=== PATIENT | male | born 1955 | race Caucasian/White ===

== ENCOUNTER 2018-03-24 11:59 | Outpatient (CLI) | payer OTHER ==
--- NOTE | 2018-03-24 13:23 | ULT ---
BILATERAL CAROTID DUPLEX ULTRASOUND: DATE: 03/24/18 HISTORY: Syncope. TECHNIQUE: Ferris scale ultrasound with color flow and spectral Doppler imaging of the extracranial carotid artery systems performed bilaterally. FINDINGS: No significant plaque formation or intimal wall thickening is seen on either side. The peak systolic velocity in the right ICA measures 87 cm/second with an end-diastolic velocity of 3 0 cm/second and a systolic ratio of 1.08. The peak systolic velocity in the left ICA measures 59 cm/second with an end-diastolic velocity of 25 cm/second and a systolic ratio of 0.72. Flow in both vertebral arteries remains antegrade. IMPRESSION: No evidence of hemodynamically significant stenosis. POS: OFF
== END 2018-03-24 12:00 | disposition home or self-care (01) ==
LOC: ULT 11:59
PROVIDERS: ATTEND Family Medicine
DX: R55 Syncope and collapse (principal); I51.7 Cardiomegaly
CPT/HCPCS: 93306; 93880

== ENCOUNTER 2024-04-07 07:55 | Outpatient (CLI) | payer OTHER ==
[2024-04-07 09:17] LABS: #Basophils 0.06 10x3/uL (0.0-0.2); %Basophils 0.8 % (0.0-1.0); %Eosinophils 4.3 % (0.0-10.0); %Lymphocytes 21.9 % (21.0-51.0); %Monocytes 8.7 % (0.0-10.0); Hematocrit 39.6 % (42.0-52.0); Hemoglobin 13.3 g/dL (14.0-18.0); Mean Corpuscular HGB CONC 33.6 g/dL (32.0-36.0); Mean Corpuscular Hemoglobin 30.6 pg (27.0-31.0); Mean Corpuscular Volume 91.2 fL (78.0-98.0); Mean Platelet Volume 10.3 fL (7.4-10.4); Platelet Count 220 10x3/uL (130-400); RBC Distribution Width 12.6 % (11.5-14.5); Red Blood Cell (RBC) Count 4.34 mill/uL (4.70-6.10)
== END 2024-04-07 07:56 | disposition home or self-care (01) ==
LOC: LABBT 07:55
PROVIDERS: ATTEND Orthopaedic Surgery Hand Surgery
DX: Z01.818 Encounter for other preprocedural examination (principal); G56.02 Carpal tunnel syndrome, left upper limb; G56.22 Lesion of ulnar nerve, left upper limb; G56.12 Other lesions of median nerve, left upper limb
CPT/HCPCS: 85025; 93005; 93010

== ENCOUNTER 2025-03-29 14:13 | Outpatient (CLI) | payer OTHER, MEDICARE | END 2025-03-29 14:14 | disposition home or self-care (01) | LOC: ULT 14:13 | PROVIDERS: ATTEND Urology | DX: Z87.442 Personal history of urinary calculi (principal); N28.1 Cyst of kidney, acquired | CPT/HCPCS: 76770 ==